=== PATIENT | female | born 1985 | race Caucasian/White ===

== ENCOUNTER → 2017-04-18 | Outpatient (CLI) | payer OTHER ==
[2014-05-05 11:16] VITALS: BMI 29.3
[~2017-04-18] MED LIST: ACET-1718 PO; ALB6.7R INH; AMOX500T10 PO; AZIT-1 PO; BISA-229 PO; CIPDEXPT EACH EAR; CIPR-214 PO; CORED OT; CYCL10TA29 PO; FLUT9.9S; FOLI0.8T29 PO; GUAI120L3 PO; IBUP800T37 PO; LOR5/325 PO; MONT10TA PO; OFLO5DRO45 OT; PRED20TA6 PO; PREN-129 PO; SUMA50TA34 PO; THRIVE
--- NOTE | 2017-04-18 15:30 | RADIOLOGY IMAGING REPORT ---
FACILITY: [facility] [place] PATIENT NAME: Zach Farias : 1985 MR: [id number] V: [id number] EXAM DATE: ORDERING PHYSICIAN: SONALI CASE TECHNOLOGIST: Location: [facility] Patient: Zach Farias : 1985 Visit/Account:[id number] Date of Sevice: 04/18/2017 Technique: RIBS LEFT HISTORY: left rib pain COMPARISON: None available Findings: The lungs are clear. No pleural effusion or pneumothorax. The cardiomediastinal silhouett e is normal. There is no acute fracture. Impression: 1. No acute cardiopulmonary process. 2. No acute fracture. Report Dictated By: Benjamin Rosales DO at 04/18/2017 3:25 PM Report E-Signed By: Benjamin Rosales DO at 04/18/2017 3:26 PM WSN:[id number]
== END ==
LOC: RAD 14:41
PROVIDERS: ATTEND Internal Medicine
DX: R07.81 Pleurodynia (principal)
CPT/HCPCS: 71100

== ENCOUNTER 2017-09-04 02:42 | Day surgery (SDC) | payer OTHER ==
[2014-05-05 11:16] VITALS: Ht 157.5 cm; Wt 55.8 kg
--- NOTE | 2017-09-03 22:50 | HISTORY AND PHYSICAL ---
DATE OF ADMISSION: September 04, 2017 CHIEF COMPLAINT Undesired fertility. HISTORY OF PRESENT ILLNESS Patient is a 31-year-old G2, P1, with undesired fertility. She no longer desires to conceive. We had discussed options for contraception as well as risks of procedure and risks of failure. Patient desires to proceed with laparoscopic bilateral tubal ligation. CURRENT MEDICATIONS * Levonorgestrel. ALLERGIES No known drug allergies. REVIEW OF SYSTEMS GENITOURINARY: Per HPI. GENERAL, SKIN, EYES, EARS, NOSE, MOUTH, NECK, RESPIRATORY, CARDIOVASCULAR, GASTROINTESTINAL, NEUROLOGICAL, and PSYCHIATRIC: All reviewed and noncontributory. PAST HISTORY * History of anxiety and depression. * Frequent UTIs. SURGICAL HISTORY * She has had bone spur removal. FAMILY HISTORY Father with type 2 diabetes. SOCIAL HISTORY Drinks occasionally. She is a nonsmoker. No illicit drug use. PHYSICAL EXAMINATION VITAL SIGNS: BP 110/68, temp 98.1, weight 124. CONSTITUTIONAL: Well-nourished, well-developed female in no distress. SKIN: Without rash or lesions. NECK: Supple, without masses. HEART: Regular rate and rhythm. LUNGS: Clear to auscultation bilaterally. ABDOMEN: Soft, nontender, nondistended. Bowel sounds positive. EXTREMITIES: Nontender. No edema. PSYCHIATRIC: Alert and oriented times three. Normal mood and affect. PELVIC: Normal external female genitalia. Well-estrogenized vaginal lining. Cervix normal appearance. No abnormal discharge. Uterus 6 x 5 cm. No adnexal masses or tenderness. ASSESSMENT * Undesired fertility. PLAN Plan to perform laparoscopic bilateral tubal ligation via Falope ring. NUNO
[~2017-09-04] VITALS: Ht 157.5 cm; Wt 55.8 kg
[2017-09-04] VITALS (11 sets, daily range): BP systolic 78–110; BP diastolic 41–78
[~2017-09-04 02:42] MED LIST changes: +BIRTH CONTROL; +NORG1TAB76 PO; +[UNRECOGNIZED DRUG - CODE] PO
[2017-09-04] MEDS: NORMOSOL R SOLN(*) 1000 ML BAG 1,000 ML IV PRN ×2 (06:19→08:30)
[2017-09-04] MEDS ORDERED: MIDAZOLAM 2 MG/2 ML VIAL IVP PRN (06:30)
[2017-09-04] MEDS ORDERED: LIDOCAINE/SOD BICARB 8.4% SYR ID ONE (06:30)
[2017-09-04] MEDS ORDERED: CELECOXIB 200 MG CAP PO ONE (06:30)
[2017-09-04] MEDS ORDERED: HYDROmorphone HCL 2 MG TAB PO ONE (06:30)
[2017-09-04] MEDS ORDERED: cefOXitin SOD 2 GM VIAL 2 GM in NS(*) 0.9% 100 ML BAG 100 ML IVPB ONE (06:30)
[2017-09-04] MEDS ORDERED: FAMOTIDINE 20 MG TAB PO ONE (06:30)
[2017-09-04] MEDS ORDERED: ROPIVACAINE 0.2% 20 ML VIAL ONE (06:31)
[2017-09-04] MEDS ORDERED: SCOPOLAMINE 1.5 MG PATCH TD ONE (06:40)
[2017-09-04 06:53] LABS: PLATELET COUNT, AUTOMATED 152 K/uL (150-450)
[2017-09-04] MEDS ORDERED: fentaNYL CITR 100 MCG/2 ML AMP ONE ×2 (07:05→08:41)
[2017-09-04] MEDS ORDERED: DEXAMETHASONE SOD PHOS 10MG/ML ONE (07:06)
[2017-09-04] MEDS ORDERED: ONDANSETRON 4 MG/2 ML VIAL ONE (07:06)
[2017-09-04] MEDS ORDERED: PROPOFOL EMUL(*) 10MG/ML 20 ML 20 ML ONE (07:06)
[2017-09-04] MEDS ORDERED: LIDOCAINE MPF 1% 5 ML VIAL ONE (07:06)
[2017-09-04] MEDS ORDERED: HALOPERIDOL LACT 5 MG/ML VIAL IM ONE (07:07)
[2017-09-04] MEDS ORDERED: SUGAMMADEX SOD 200 MG/2 ML SDV ONE (07:12)
[2017-09-04] MEDS ORDERED: ROCURONIUM BROM 10 MG/ML 5 ML ONE (07:30)
[2017-09-04] MEDS ORDERED: KETAMINE HCL 200 MG/20 ML MDV ONE (07:43)
[2017-09-04] MEDS ORDERED: LR(*) 1000 ML BAG 1,000 ML IV ONE (08:07)
--- NOTE | 2017-09-04 08:07 | Post Operative Note ---
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
[2017-09-04] MEDS ORDERED: IBUP800T37 PO (08:08)
[2017-09-04] MEDS ORDERED: HYDR2TAB4 PO (08:08)
[2017-09-04] MEDS ORDERED: HYDROmorphone HCL 2 MG TAB PO PRN ×2 (08:10→10:25)
[2017-09-04] MEDS ORDERED: METOCLOPRAMIDE 10 MG/2 ML SDV IVP PRN (08:10)
--- NOTE | 2017-09-04 08:10 | OB/GYN Discharge Summary ---
Discharge Summary Reason for Hosp/Final Diag: (1) Status post laparoscopic procedure Hospital Course & Plan: LSCOPE BTL PERFORMED NO COMPLICATIONS Lates Vital Signs Vital Signs Date Time Temp Pulse Resp B/P (MAP) Pulse Ox O2 Delivery O2 Flow Rate FiO2 09/04/17 06:30 97.9 67 16 110/78 (89) 93 Room Air Weight (Pounds): 123 Result Diagram: 09/04/17 0637 Condition: Improved Discharge: Home, Self Long Term Meds Active Scripts Ibuprofen (IBUPROFEN) 800 Mg Tablet, 1 TAB PO Q8H, #30 TAB 0 Refills Take with food every 8 hours. Prov:NEEL ALFARO MD 09/04/17 Hydromorphone Hcl (HYDROMORPHONE HCL) 2 Mg Tablet, 2-4 MG PO Q4H for PAIN, #20 TAB 0 Refills Prov:NEEL ALFARO MD 09/04/17 Fluticasone Propionate (Flonase Allergy Relief) 9.9 Ml [place].susp, 2 SPRAY NA QDAY, #1 BOT 1 Refill 2 sprays in each nostril every day. Prov:NESHA WHALEY DNP [facility]- 12/23/15 Montelukast Sodium (SINGULAIR) 10 Mg Tablet, 1 TAB PO QDAY, #30 TAB 1 Refill TAKE ONE TABLET BY MOUTH EVERY DAY Prov:NESHA WHALEY DNP [facility] 11/09/15 Albuterol Sulfate (PROVENTIL HFA) 6.7 Gm Inh, 1-2 PUFF INH 3-4XD Y for SHORTNESS OF BREATH, #1 INH 2 Refills Prov:NESHA WHALEY DNP [facility] 11/09/15 Reported Medications Chlorpheniramine Maleate (ALLERGY) 4 Mg Tablet, PO 08/28/17 Norgestrel-Ethinyl Estradiol (CRYSELLE) 1 Each Tablet, 1 EACH PO 08/28/17 [Thrive] Unknown Strength No Conflict Check 06/20/15 Discontinued Reported Medications [ Control ] No Conflict Check 08/28/17 Follow up with: Dr. Alfaro [phone] Follow up in: 2 wks PO Discharge Diet: As Tolerates Discharge Activity: Pelvic Rest Copies to: NEEL ALFARO MD, JOHN MD Sep 04, 2017 08:10
[2017-09-04] MEDS ORDERED: IBUPROFEN 800 MG TAB PO SCH (09:00)
--- NOTE | 2017-09-04 13:25 | OPERATIVE REPORT 1 ---
EVENT DATE: September 04, 2017 SURGEON: Dmitry Alfaro MD ANESTHESIOLOGIST: Dami Gifford MD ANESTHESIA: General PREOPERATIVE DIAGNOSIS Undesired fertility. POSTOPERATIVE DIAGNOSIS Undesired fertility. PROCEDURE PERFORMED Laparoscopic bilateral tubal ligation via Falope ring. COMPLICATIONS None. FLUIDS 750 mL Normosol IV. ESTIMATED BLOOD LOSS Minimal. INDICATIONS Patient is s 31-year-old female with undesired fertility. After discussion of risks and alternatives as well as risks of procedure and risks of failure, patient desired to proceed with laparoscopic bilateral tubal ligation via Falope ring. FINDINGS Uterus 6 x 5 cm, normal ovaries bilaterally. PROCEDURE After informed consent was obtained, the patient was taken to the operating room with the IV running, placed in the supine position where general anesthesia was obtained without difficulty. We then placed the Amber crum, examined under anesthesia with the above findings. She was then prepped and draped in the usual fashion. Her blader was drained. Side out speculum was placed into the vagina. Cervix was grasped with a single tooth tenaculum. Cervix was then sounded to 7 cm, #6 DOMINGUEZ uterine manipulator was advanced into the uterine cavity. The remainder of the instruments were removed from the vagina. Attention was then turned to the abdomen after the legs were lowered. 0.2 Naropin was infiltrated into the umbilicus. Skin incision was made with a scalpel. Veress needle advanced into the abdominal cavity. Normal CO2 filling pressures were noted after adequate insufflation. The 5-mm bladeless trocar was advanced laparoscopic guidance. Intraabdominal placement was confirmed by laparoscopy. No injuries were noted at the time of entry. A suprapubic port was then placed under direct visualization after 0.2 Naropin and the skin incision made with a scalpel, and then advancing the 8 mm bladeless trocar under direct visualization. The patient was placed in Trendelenburg positioning. The bowel was allowed to escape from the pelvis. Inspection of the abdomen and pelvis revealed normal anatomy. The Falope ring emts was then used to grasp the midportion of the left tube. The tube was advanced into the Falope ring emts. The Falope ring was placed with excellent results. Attention was then turned to the patient's right, and the midportion of tube was grasped with a Falope ring emts, advanced the tube into the Falope ring emts, and Falope ring was advanced, and excellent application was noted. The gas was allowed to escape from the abdomen. All instruments were removed from the abdominal cavity. The skin was closed with 4- 0 Monocryl and Dermabond. Patient was taken out of the [facility], awakened from anesthesia and taken to recovery room in stable condition. [facility]
== END 2017-09-04 09:58 | disposition home or self-care (01) ==
LOC: OR 02:42
PROVIDERS: ATTEND Obstetrics & Gynecology
DX: Z30.2 Encounter for sterilization (principal); Z87.440 Personal history of urinary (tract) infections
CPT/HCPCS: 36415; 58671; 84703; 85025; J0694; J1100; J1630; J2001; J2250; J2405; J2704; J2795; J3010; J3490; J7050

== ENCOUNTER → 2018-06-27 | Outpatient (CLI) | payer OTHER ==
[2014-05-05 11:16] VITALS: BMI 29.3
[~2018-06-27] MED LIST changes: +ALPR-429 PO; +BENZ200C15 PO; +CIPDEXPT RIGHT EAR; +ESCI20TA38 PO; +FLUO20DR3 OT; +HYDR2TAB4 PO; +MECL25TA9 PO
== END ==
LOC: LAB 13:33
PROVIDERS: ATTEND Nurse Practitioner Primary Care
DX: R53.83 Other fatigue (principal)
CPT/HCPCS: 36415; 86308